=== PATIENT | female | born 1985 | race African-American/Black ===

== ENCOUNTER → 2023-09-30 | Outpatient (CLI) | payer OTHER | END | disposition home or self-care (01) | LOC: US 15:00 | PROVIDERS: ATTEND Nurse Practitioner Family | DX: M79.89 Other specified soft tissue disorders (principal); Z86.711 Personal history of pulmonary embolism ==

== ENCOUNTER 2023-11-08 14:25 | Emergency (ER) | payer OTHER ==
[~2023-11-08] VITALS: Ht 160 cm; Wt 98.0 kg
[2023-11-08] MEDS ORDERED: Ondansetron Hydrochloride 4 MG TAB SL ONE (15:00)
[2023-11-08 15:10] LABS: BILIRUBIN Negative (Negative); BLOOD Negative (Negative); CLARITY Cloudy (Clear); COLOR Yellow (Yellow); GLUCOSE Negative (Negative); KETONE Negative (Negative); LEUKO ESTERASE 1+ (Negative); NITRITE Negative (Negative); SPECIFIC GRAVITY 1.025 (1.001-1.030)
[2023-11-08 15:36] LABS: BACTERIA 2+
[2023-11-08] MEDS ORDERED: SEPTDS PO (15:49)
[2023-11-08] MEDS ORDERED: Ondansetron4 MG PO (15:49)
[2023-11-08] MEDS ORDERED: Sulfamethoxazole/Trimethopri 1 TAB TAB PO ONE (15:50)
== END 2023-11-08 16:08 | disposition home or self-care (01) ==
LOC: ED 14:25
PROVIDERS: Nurse Practitioner Family
DX: N39.0 Urinary tract infection, site not specified (principal); L02.214 Cutaneous abscess of groin; F17.200 Nicotine dependence, unspecified, uncomplicated; Z91.041 Radiographic dye allergy status

== ENCOUNTER 2023-12-06 22:11 | Emergency (ER) | payer OTHER ==
[~2023-12-06] VITALS: Ht 157.4 cm; Wt 108.9 kg
[~2023-12-06 22:11] MED LIST: Ondansetron4 MG PO; SEPTDS PO
[2023-12-06 22:32] LABS: BASO % 0.4 % (0.0-1.0); EOS % 0.5 % (1.0-4.0); HEMATOCRIT 37.9 % (37.0-47.0); LYMPH # 2.5 10*3/uL (1.3-4.4); LYMPH % 30.8 % (27.0-41.0); MEAN CELL VOLUME 73.3 fl (81.0-99.0); MEAN CORPUSCULAR HGB 22.2 pg (27.0-31.0); MEAN CORPUSCULAR HGB CONC 30.3 g/dl (33.0-37.0); MEAN PLATELET VOLUME 10.3 fl (9.6-12.3); MONO # 0.6 10*3/uL (0.1-1.0); NEUT % 61.1 % (47.0-73.0); PLATELET COUNT AUTOMATED 296 10*3/uL (130-400); RED BLOOD COUNT 5.17 10*6/uL (4.10-5.10); RED CELL DISTRI WIDTH 16.2 % (0-14.5); WHITE BLOOD COUNT 8.2 10*3/uL (4.8-10.8)
[2023-12-06 23:00] LABS: ALKALINE PHOSPHATASE 73 U/L (46-116); BUN 14 mg/dl (9-23); CHLORIDE 109 mmol/L (98-107); ETHYL ALCOHOL < 3.0 mg/dl (<3); POTASSIUM 4.2 mmol/L (3.4-5.1); SGPT/ALT 10 U/L (5-49); TOTAL PROTEIN 7.6 gm/dL (6.0-8.0)
[2023-12-06 23:01] LABS: BILIRUBIN Negative (Negative); BLOOD Negative (Negative); CLARITY Cloudy (Clear); COLOR Yellow (Yellow); GLUCOSE Negative (Negative); KETONE Negative (Negative); LEUKO ESTERASE 1+ (Negative); NITRITE Positive (Negative); PH 5.5 (4.5-8.0); SPECIFIC GRAVITY >= 1.030 (1.001-1.030); UROBILINOGEN 0.2 E.U./dl (0.0-1.0)
[2023-12-06 23:09] LABS: URINE AMPHETAMINES Negative (1000ng/ml); URINE BARBITURATES Negative (200ng/ml); URINE BENZODIAZEPINES Negative (200ng/ml); URINE CANNABINOIDS (THC) Negative (50ng/ml); URINE COCAINE Negative (300ng/ml); URINE METHADONE Negative (300ng/ml); URINE OPIATES Negative (300ng/ml); URINE PHENCYCLIDINE Negative (25ng/ml)
[2023-12-06 23:18] LABS: BACTERIA 2+; EPITHELIAL CELLS 16-20; MUCOUS 1+; RBC 0-2 rbc/hpf (0-2); WBC 31-40 wbc/hpf (0-5)
[2023-12-07] MEDS ORDERED: Sulfamethoxazole/Trimethopri 1 TAB TAB PO ONE (01:05)
[2023-12-07] MEDS ORDERED: SEPTDS PO (01:07)
[2023-12-07] MEDS ORDERED: Ondansetron Hydrochloride 4 MG TAB SL ONE (05:35)
== END 2023-12-07 06:27 | disposition home or self-care (01) ==
LOC: ED 22:11
PROVIDERS: Internal Medicine
DX: F43.20 Adjustment disorder, unspecified (principal); N39.0 Urinary tract infection, site not specified; Z91.041 Radiographic dye allergy status; Z91.040 Latex allergy status